=== PATIENT | male | born 1950 | race Caucasian/White ===

== ENCOUNTER 2023-05-24 07:20 | Day surgery (SDC) | payer OTHER ==
[2023-05-20 12:10] VITALS: BMI 31.0
[2023-05-24] MEDS ORDERED: LIDOCAINE HCL/PF 2% SDV 5ML VIAL ONE (07:32)
[2023-05-24] MEDS ORDERED: PROPOFOL 160 ML ONE (07:33)
[2023-05-24 08:52] VITALS: RESP 20
[2023-05-24 09:20] VITALS: BP 120/84; PULSE 82; TEMP 97.2
== END 2023-05-24 09:10 | disposition home or self-care (01) ==
LOC: FASU-ENDO 07:20
PROVIDERS: ATTEND Internal Medicine Gastroenterology
PROC: 0DJD8ZZ Inspection of Lower Intestinal Tract, Via Natural or Artificial Opening Endoscopic (ICD-10-PCS; principal; 2023-05-24 08:17)
DX: Z12.11 Encounter for screening for malignant neoplasm of colon (principal); Z86.010 Personal history of colon polyps; K57.30 Diverticulosis of large intestine without perforation or abscess without bleeding